=== PATIENT | female | born 1995 | race African-American/Black ===

== ENCOUNTER 2020-05-05 09:51 | Emergency (ER) | payer SELFPAY ==
[2020-05-05 10:03] VITALS: BP 119/59; PULSE 85; TEMP 98.6; BMI 25.6
[2020-05-05] MEDS ORDERED: KETOROLAC TROMETHAMINE 30 MG/1 ML VIAL IM ONE (10:12)
[2020-05-05] MEDS ORDERED: diazePAM 5 MG TABLET PO ONE (10:12)
[2020-05-05] MEDS ORDERED: KETOROLAC TROMETHAMINE 30 MG/1 ML VIAL ONE (11:02)
[2020-05-05] MEDS ORDERED: diazePAM 5 MG TABLET ONE (11:02)
== END 2020-05-05 11:36 | disposition home or self-care (01) ==
LOC: JERFT 09:51
PROC: 3E0233Z Introduction of Anti-inflammatory into Muscle, Percutaneous Approach (ICD-10-PCS; principal; 2020-05-05)
DX: M54.5 Low back pain (principal)
CPT/HCPCS: 99284-25